=== PATIENT | male | born 1970 | race Caucasian/White ===

== ENCOUNTER 2016-07-24 15:12 | Emergency (ER) | payer OTHER ==
[~2016-07-24] VITALS: Ht 188 cm; Wt 147.7 kg
[~2016-07-24 15:12] MED LIST: BNC/20125 PO; RXC5 PO
[2016-07-24 15:19] VITALS: TEMP 36.8; Ht 188 cm; Wt 147.7 kg
[2016-07-24] MEDS ORDERED: CLAR500T3 PO (15:36)
[2016-07-24] MEDS ORDERED: IBUP-1050 PO (15:37)
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
[2016-07-24 17:07] VITALS: BP 149/69; PULSE 77; O2SAT 95
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
== END 2016-07-24 16:56 | disposition home or self-care (01) ==
LOC: EDBD 15:12 → C.EDD 15:14
DX: M25.561 Pain in right knee (principal); M25.562 Pain in left knee; M79.674 Pain in right toe(s); V43.52XA Car driver injured in collision with other type car in traffic accident, initial encounter; I10 Essential (primary) hypertension